=== PATIENT | male | born 1965 | race Two or more races ===

== ENCOUNTER → 2024-12-23 | Outpatient (CLI) | payer MEDICAID, SELFPAY ==
--- NOTE | 2024-12-23 10:15 | XR_ITS ---
Examination: Transrectal prostate sonography TECHNIQUE: Transrectal sonographic images prostate Exam date and time: December 23, 2024 at 1005 hours INDICATIONS: Screening examination for malignant neoplasm prostate FINDINGS: Prostate 4.8 x 2.6 x 4.6 cm volume 30 cc Nodule in the left lateral prostate 6 x 6 x 5 mm IMPRESSION: Prostate nodule as above, consider ultrasound-guided prostate biopsy follow-up
== END | disposition home or self-care (01) ==
PROVIDERS: PCP Family Medicine; Referring Provider Family Medicine; Visit Provider Family Medicine
DX: Z12.5 Encounter for screening for malignant neoplasm of prostate (principal); N40.2 Nodular prostate without lower urinary tract symptoms
CPT/HCPCS: 76872

== ENCOUNTER → 2025-04-08 | Outpatient (CLI) | payer MEDICAID, SELFPAY ==
--- NOTE | 2025-04-08 09:20 | XR_ITS ---
Examination: Gastrografin enema with KUB Date and time: April 08, 2025 0941 hours INDICATIONS: Diagnosis colonic polyps TECHNIQUE AND FINDINGS: [employer] AP supine abdomen single view Clinical data retrograde manner to the cecum with Gastrografin refluxed indeterminate ileum Scattered colonic diverticulosis 10 mm filling defect in the descending colon consistent with polyp No constricting colonic lesion No rectal separation IMPRESSION: Findings most consistent with 10 mm polyp in the descending colon
== END | disposition home or self-care (01) ==
LOC: CDIM 08:54
PROVIDERS: PCP Family Medicine; Referring Provider Internal Medicine Gastroenterology; Visit Provider Internal Medicine Gastroenterology
DX: K52.89 Other specified noninfective gastroenteritis and colitis (principal); K63.5 Polyp of colon
CPT/HCPCS: 74280

== ENCOUNTER → 2025-11-10 | Outpatient (CLI) | payer MEDICAID, SELFPAY ==
--- NOTE | 2025-11-10 08:45 | XR_ITS ---
Study: Abdomen ultrasound. 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 TECHNIQUE: Grayscale ultrasound with color flow Doppler. 79 images 0825 hours 10 November 2025. FINDINGS: The gallbladder wall is thin and there are no contained stones. The common bile duct measures 0.2 cm. The liver measures 13.6 cm in the midclavicular line. Parenchyma is minimally hyperechoic and diffusely heterogeneous in echogenicity. Margination is nodular. There is no cyst, solid mass or distended duct. Portal vein flow is toward the liver. The head and body of the pancreas are visible and normally echogenic. The pancreatic head is at the upper limit of normal for size at 3.2 cm. The tail is obscured by bowel gas. The aorta is normal in caliber. The inferior vena cava is patent. The right kidney measures 10.9 x 5.2 x 5.7 cm with a cortex of 2.1 cm. The left kidney measures 11.6 x 5.3 x 5.5 cm with a cortex of 1.9 cm. There is an upper pole nonobstructing stone measuring approximately 0.5 cm. The spleen measures 16.2 x 6.0 cm and is normally echogenic. There is no visible ascites. Impression: Hepatic cirrhosis without portal hypertension. No discrete pathologic hepatic mass.
== END | disposition home or self-care (01) ==
PROVIDERS: PCP Family Medicine; Referring Provider Internal Medicine Gastroenterology; Visit Provider Internal Medicine Gastroenterology
DX: K74.60 Unspecified cirrhosis of liver (principal)
CPT/HCPCS: 76700